=== PATIENT | female | born 1960 | race African-American/Black ===

== ENCOUNTER 2016-07-07 15:10 | Inpatient (IN) | payer MEDICAID ==
[~2016-07-07] VITALS: Ht 157.5 cm; Wt 42.2 kg
[~2016-07-07 15:10] MED LIST: FUROSEMIDE20 M1 ORAL; POTASSIUM CHLOR8 ME3 PO; SPIRONOLACTONE25 MG ORAL
[2016-07-07 16:51] VITALS: BP 94/71
[2016-07-07 16:56] LABS: BASOPHILS % (AUTO) 1.8 % (0.0-2.0); EOSINOPHILS % (AUTO) 0.4 % (0.0-3.0); LYMPHOCYTES % (AUTO) 26.3 % (20.0-45.0); MEAN CORPUSCULAR HEMOGLOBIN 33.7 PG (27.0-31.0); MEAN CORPUSCULAR HGB CONC 32.4 G/DL (32.0-36.0); MEAN CORPUSCULAR VOLUME 104 FL (80-99); MEAN PLATELET VOLUME 7.1 FL (6.5-10.1); MONOCYTES % (AUTO) 11.4 % (1.0-10.0); NEUTROPHILS % (AUTO) 60.2 % (45.0-75.0); PLATELET COUNT 159 K/UL (150-450); RED BLOOD COUNT 3.38 M/UL (4.20-5.40); RED CELL DISTRIBUTION WIDTH 12.7 % (11.6-14.8); WHITE BLOOD COUNT 8.5 K/UL (4.8-10.8)
[2016-07-07 16:58] LABS: APPEARANCE,URINE CLEAR; KETONES,URINE NEGATIVE (NEGATIVE); LEUKOCYTE ESTERASE ,URINE NEGATIVE (NEGATIVE); NITRITE,URINE NEGATIVE (NEGATIVE); PH,URINE 7 (4.5-8.0); PROTEIN,URINE NEGATIVE (NEGATIVE); UROBILINOGEN,URINE NORMAL MG/DL (0.0-1.0)
--- NOTE | 2016-07-07 17:00 | Emergency Room Report ---
History of Present Illness General Chief Complaint: Syncope Source: Patient, Family Member Present Illness HPI 56 YO F on lasix with witnessed syncopal episode walking into house. Daughter stated patient c/o dizziness, went limp, had to be carried in. Regained consciousness within minutes. No trauma. Patient now asymptomatic, denies current and precipitating chest pain, SOB, abd pain, rectal bleed, anemia, headache. Takes lasix with potassium. Allergies: Coded Allergies: No Known Allergies (Unverified , 07/07/16) Patient History Past Medical History: see triage record, old chart reviewed Past Surgical History: none Pertinent Family History: none Social History: Denies: alcohol use, drug use, smoking Now: No Immunizations: UTD Reviewed Nursing Documentation: PMH: Agreed, PSxH: Agreed Nursing Documentation-PMH Hx Gastrointestinal Problems: Yes - Cirrhosis of liver Review of Systems All Other Systems: negative except mentioned in HPI Physical Exam Vital Signs Date Time Temp Pulse Resp B/P Pulse Ox O2 Delivery O2 Flow Rate FiO2 07/07/16 15:05 98.4 80 16 92/58 97 Room Air Sp02 EP Interpretation: reviewed, abnormal General Appearance: normal inspection, well appearing, no apparent distress, alert, GCS 15, non-toxic, cachetic, other - frail elderly lady Head: normocephalic, atraumatic Eyes: bilateral eye EOMI, bilateral eye PERRL ENT: normal ENT inspection, hearing grossly normal, normal voice Neck: normal inspection, full range of motion, supple, no bony tend Cardiovascular #1: regular rate, rhythm, no edema Gastrointestinal: normal inspection, normal bowel sounds, non tender, soft, no guarding, no hernia Genitourinary: no CVA tenderness Musculoskeletal: normal inspection, back normal, normal range of motion, Alon' s Sign negative Neurologic: normal inspection, alert, oriented x3, responsive, 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 I attest that this information is true, accurate and complete to the best of my knowledge. I understand that any falsification, omission, or concealment of material fact may subject me to administrative, civil, or criminal liability. This patient warrants hospital admission for extreme of age and has a condition that cannot be treated as outpatient. Diagnostic Impression: Primary Impression: Syncope Qualified Codes: R55 - Syncope and collapse Additional Impressions: Hypotension Qualified Codes: I95.9 - Hypotension, unspecified Hypokalemia Prolonged QT interval ER Course Labs: H&H stable. K 2.9 UA: Negative for hematuria, UTI ECG: NSR. No ischemia. Prolonged QTc A: Syncope Possibly vasovagal Hypotensive but not critically low Doesnt take beta denilson ?related to hypokalemia from Lasix despite supplementation - Gave gentle hydration in ED - Repleted K Endorsed to Dr Garcia at 513pm for tele admission EKG Diagnostic Results Rate: normal Rhythm: NSR ST Segments: no acute changes Other Impression prolonged QTc ASA given to the pt in ED: No Rhythm Strip Diag. Results EP Interpretation: yes Rate: 74 Rhythm: NSR, no PVC's, no ectopy Chest X-Ray Diagnostic Results EP Interpretation: Yes Findings: no consolidation, no effusion, no pneumothorax, no acute cardiopulmonary disease Number of Views: 1 Last Vital Signs Date Time Temp Pulse Resp B/P Pulse Ox O2 Delivery O2 Flow Rate FiO2 07/07/16 16:51 98.2 67 16 94/71 99 Room Air Status: improved Disposition: ADMITTED INPATIENT Condition: Serious Referrals: NOT CHOSEN JOSEPH/,REFERRING (PCP) TRISTAN LONGO M.D. Jul 07, 2016 17:00
[2016-07-07 17:12] LABS: ALANINE AMINOTRANSFERASE 15 U/L (3-33); ALBUMIN/GLOBULIN RATIO 0.8 (1.0-2.7); ANION GAP 13 (5-15); ASPARTATE AMINO TRANSFERASE 36 U/L (5-40); CARBON DIOXIDE 32 mEQ/L (20-30); CHLORIDE 90 mEQ/L (98-107); CREATININE 0.6 mg/dL (0.5-0.9); GLOMERULAR FILTRATION RATE > 60 mL/min (>60); HEMOLYSIS 35; POTASSIUM 2.9 mEQ/L (3.4-4.9); SODIUM 135 mEQ/L (135-145); TOTAL PROTEIN 6.7 g/dL (6.6-8.7); TROPONIN I < 0.30 ng/mL (<=0.30)
[2016-07-07 17:22] LABS: CKMB < 1.5 ng/mL (< 3.8)
[2016-07-07 17:43] VITALS: BP 97/68
[2016-07-07] MEDS ORDERED: KCl 10% 40mEq/30ml liquid ORAL ONE (17:45)
--- NOTE | 2016-07-07 19:11 | Cardiac Electrophysiology PN ---
Subjective Subjective [id number] Objective Last 24 Hour Vital Signs Date Time Temp Pulse Resp B/P Pulse Ox O2 Delivery O2 Flow Rate FiO2 07/07/16 17:43 98.1 70 14 97/68 100 Room Air 07/07/16 16:51 98.2 67 16 94/71 99 Room Air 07/07/16 15:05 98.4 80 16 92/58 97 Room Air Laboratory Tests Test 07/07/16 16:00 White Blood Count 8.5 K/UL (4.8-10.8) Red Blood Count 3.38 M/UL (4.20-5.40) L Hemoglobin 11.4 G/DL (12.0-16.0) L Hematocrit 35.2 % (37.0-47.0) L Mean Corpuscular Volume 104 FL (80-99) H Mean Corpuscular Hemoglobin 33.7 PG (27.0-31.0) H Mean Corpuscular Hemoglobin Concent 32.4 G/DL (32.0-36.0) Red Cell Distribution Width 12.7 % (11.6-14.8) Platelet Count 159 K/UL (150-450) Mean Platelet Volume 7.1 FL (6.5-10.1) Neutrophils (%) (Auto) 60.2 % (45.0-75.0) Lymphocytes (%) (Auto) 26.3 % (20.0-45.0) Monocytes (%) (Auto) 11.4 % (1.0-10.0) H Eosinophils (%) (Auto) 0.4 % (0.0-3.0) Basophils (%) (Auto) 1.8 % (0.0-2.0) Urine Color Pale yellow Urine Appearance Clear Urine pH 7 (4.5-8.0) Urine Specific [place] 1.010 (1.005-1.035) Urine Protein Negative (NEGATIVE) Urine Glucose (UA) Negative (NEGATIVE) Urine Ketones Negative (NEGATIVE) Urine Occult Blood Negative (NEGATIVE) Urine Nitrite Negative (NEGATIVE) Urine Bilirubin Negative (NEGATIVE) Urine Urobilinogen Normal MG/DL (0.0-1.0) Urine Leukocyte Esterase Negative (NEGATIVE) Sodium Level 135 mEQ/L (135-145) Potassium Level 2.9 mEQ/L (3.4-4.9) L Chloride Level 90 mEQ/L (98-107) L Carbon Dioxide Level 32 mEQ/L (20-30) H Anion Gap 13 (5-15) Blood Urea Nitrogen 8 mg/dL (7-23) Creatinine 0.6 mg/dL (0.5-0.9) Estimat Glomerular Filtration Rate > 60 mL/min (>60) Glucose Level 114 mg/dL (74-106) H Calcium Level 9.0 mg/dL (8.6-10.2) Total Bilirubin 0.5 mg/dL (0.0-1.2) Aspartate Amino Transf (AST/SGOT) 36 U/L (5-40) Alanine Aminotransferase (ALT/SGPT) 15 U/L (3-33) Alkaline Phosphatase 133 U/L (35-104) H Total Creatine Kinase 35 U/L (26-140) Creatine Kinase MB < 1.5 ng/mL (< 3.8) Creatine Kinase MB Relative Index 4.2 Troponin I < 0.30 ng/mL (<=0.30) Total Protein 6.7 g/dL (6.6-8.7) Albumin 3.1 g/dL (3.5-5.2) L Globulin 3.6 g/dL Albumin/Globulin Ratio 0.8 (1.0-2.7) L JONES PAEZ Jul 07, 2016 19:11
[2016-07-07 20:17] VITALS: BP 94/59
[2016-07-07 22:38] VITALS: BP 92/63
[2016-07-08] VITALS: BP 98/59
[2016-07-08] MEDS ORDERED: Milk of Magnesia 30ml Ud ORAL PRN (00:30)
[2016-07-08] MEDS ORDERED: VITAMIN D1000 UNI1 ORAL (03:17)
[2016-07-08] MEDS ORDERED: TURMERIC500 MG PO (03:21)
--- NOTE | 2016-07-08 03:28 | Consultation ---
DATE OF CONSULTATION: 07/07/2016 CARDIOLOGY CONSULTATION REFERRING PHYSICIAN: Gabino Garcia M.D. REASON FOR CONSULTATION: Hypotension, prolonged QT, and syncope. HISTORY OF PRESENT ILLNESS: The patient is a 56-year-old lady, who states that she went to [facility] about a week ago with lower extremity edema and received Lasix and potassium. The patient presented to the emergency room after she had syncopal episodes. In the emergency room, the patient was found to be hypotensive with a blood pressure as low as 92/58. Heart rate was 80. Cardiology consultation was obtained for further evaluation QT was also prolonged. The patient denies any chest pain or shortness of breath. REVIEW OF SYSTEMS: Review of systems was performed and was negative other than what was mentioned in the history of present illness. PAST MEDICAL HISTORY: Left lower extremity edema. The patient denies any coronary artery disease, congestive heart failure, hypertension, or diabetes. FAMILY HISTORY: Noncontributory. MEDICATIONS: Medications at home include: 1. Potassium. 2. Lasix. 3. Aldactone 25 mg daily. PHYSICAL EXAMINATION: VITAL SIGNS: Blood pressure is 97/68, pulse 70, respirations 14, and she is afebrile. HEAD AND NECK: No JVD or carotid bruits. LUNGS: Clear. CARDIOVASCULAR: Shows regular S1 and S2 with no gallop or murmur. ABDOMEN: Soft and nontender. EXTREMITIES: No pitting edema. LABORATORY AND DIAGNOSTIC DATA: Her EKG showed normal sinus rhythm with prolonged QT with corrected QT of 486 milliseconds. Labs show a white count 8.2, hemoglobin 11.4, hematocrit 35.5, and platelet count 159,000. Sodium 135, potassium 2.9, BUN , and glucose of 114. Troponin is negative. ASSESSMENT AND PLAN: 1. Syncope, etiology is not clear at this time. It could be secondary to dehydration BUN and creatinine is supportive of that. We will get an echocardiogram to evaluate for ejection fraction and wall motion abnormality, and get a carotid Doppler and check orthostatic vital signs. We will completely rule out myocardial infarction protocol as well. 2. Prolonged QT, likely secondary to severe hypokalemia with a potassium of 2.9. We will repeat EKG after potassium is repleted. 3. Mild anemia. 4. History of bilateral extremity edema. Again, echocardiogram will be repeated for further evaluation. Thank you very much, Dr. Garcia, for allowing me to participate in the care of this patient. Please do not hesitate to contact me for any questions regarding my evaluation. Ta Hassan M.D. DR: BHARAT JOB#: [id number] CC:
[2016-07-08 04:00] VITALS: BP 96/59
[2016-07-08 08:00] VITALS: BP 96/63
[2016-07-08 08:04] LABS: BASOPHILS % (AUTO) 1.7 % (0.0-2.0); EOSINOPHILS % (AUTO) 1.1 % (0.0-3.0); LYMPHOCYTES % (AUTO) 32.3 % (20.0-45.0); MEAN CORPUSCULAR HEMOGLOBIN 34.8 PG (27.0-31.0); MEAN CORPUSCULAR VOLUME 106 FL (80-99); MONOCYTES % (AUTO) 11.9 % (1.0-10.0); PLATELET COUNT 155 K/UL (150-450); RED BLOOD COUNT 2.86 M/UL (4.20-5.40); RED CELL DISTRIBUTION WIDTH 12.9 % (11.6-14.8); WHITE BLOOD COUNT 6.9 K/UL (4.8-10.8)
[2016-07-08 08:39] LABS: TROPONIN I < 0.30 ng/mL (<=0.30)
[2016-07-08 09:03] LABS: CKMB < 1.5 ng/mL (< 3.8)
[2016-07-08 09:04] LABS: ANION GAP 13 (5-15); CALCIUM 8.1 mg/dL (8.6-10.2); CARBON DIOXIDE 27 mEQ/L (20-30); CHLORIDE 103 mEQ/L (98-107); CREATININE 0.5 mg/dL (0.5-0.9); GLOMERULAR FILTRATION RATE > 60 mL/min (>60); HEMOLYSIS 5; SODIUM 143 mEQ/L (135-145)
[2016-07-08] MEDS: Spironolactone 25mg tab ORAL SCH (09:27)
[2016-07-08] MEDS: Heparin 5000 units/ml inj SUBQ SCH ×2 (09:28→20:58)
[2016-07-08 12:15] VITALS: BP 97/57
--- NOTE | 2016-07-08 14:29 | Cardiac Electrophysiology PN ---
Assessment/Plan Assessment/Plan 1. Syncope, etiology is not clear at this time. Ruled out for LA. Echocardiogram pending. Carotid Doppler was negative.Not orthostatic 2. Prolonged QT, likely secondary to severe hypokalemia with a potassium of 2.9. 3. Mild anemia. 4. History of bilateral extremity edema. Echocardiogram pending. SHARDA RN Subjective Subjective Comfortable in NAD. No arrhythmias on tele. Objective Last 24 Hour Vital Signs Date Time Temp Pulse Resp B/P Pulse Ox O2 Delivery O2 Flow Rate FiO2 07/08/16 12:15 98.1 59 18 97/57 100 Room Air 07/08/16 08:00 83 07/08/16 08:00 97.9 80 18 96/63 100 Room Air 07/08/16 04:00 97.5 78 16 96/59 99 Room Air 07/08/16 03:31 77 07/08/16 00:53 81 07/08/16 00:00 98.2 74 18 98/59 97 Room Air 07/07/16 23:10 98.1 70 16 92/63 100 Room Air 07/07/16 22:38 98.1 70 16 92/63 100 Room Air 07/07/16 20:17 98.3 65 16 94/59 100 Room Air 07/07/16 17:43 98.1 70 14 97/68 100 Room Air 07/07/16 16:51 98.2 67 16 94/71 99 Room Air 07/07/16 15:05 98.4 80 16 92/58 97 Room Air Intake and Output 07/07/16 07/08/16 19:00 07:00 Intake Total 0 ml 900 ml Balance 0 ml 900 ml Intake Oral 0 ml Hemodialysis 900 ml Laboratory Tests Test 07/07/16 16:00 07/08/16 05:00 White Blood Count 8.5 K/UL (4.8-10.8) 6.9 K/UL (4.8-10.8) Red Blood Count 3.38 M/UL (4.20-5.40) L 2.86 M/UL (4.20-5.40) L Hemoglobin 11.4 G/DL (12.0-16.0) L 10.0 G/DL (12.0-16.0) L Hematocrit 35.2 % (37.0-47.0) L 30.3 % (37.0-47.0) L Mean Corpuscular Volume 104 FL (80-99) H 106 FL (80-99) H Mean Corpuscular Hemoglobin 33.7 PG (27.0-31.0) H 34.8 PG (27.0-31.0) H Mean Corpuscular Hemoglobin Concent 32.4 G/DL (32.0-36.0) 33.0 G/DL (32.0-36.0) Red Cell Distribution Width 12.7 % (11.6-14.8) 12.9 % (11.6-14.8) Platelet Count 159 K/UL (150-450) 155 K/UL (150-450) Mean Platelet Volume 7.1 FL (6.5-10.1) 7.0 FL (6.5-10.1) Neutrophils (%) (Auto) 60.2 % (45.0-75.0) 53.0 % (45.0-75.0) Lymphocytes (%) (Auto) 26.3 % (20.0-45.0) 32.3 % (20.0-45.0) Monocytes (%) (Auto) 11.4 % (1.0-10.0) H 11.9 % (1.0-10.0) H Eosinophils (%) (Auto) 0.4 % (0.0-3.0) 1.1 % (0.0-3.0) Basophils (%) (Auto) 1.8 % (0.0-2.0) 1.7 % (0.0-2.0) Urine Color Pale yellow Urine Appearance Clear Urine pH 7 (4.5-8.0) Urine Specific [place] 1.010 (1.005-1.035) Urine Protein Negative (NEGATIVE) Urine Glucose (UA) Negative (NEGATIVE) Urine Ketones Negative (NEGATIVE) Urine Occult Blood Negative (NEGATIVE) Urine Nitrite Negative (NEGATIVE) Urine Bilirubin Negative (NEGATIVE) Urine Urobilinogen Normal MG/DL (0.0-1.0) Urine Leukocyte Esterase Negative (NEGATIVE) Sodium Level 135 mEQ/L (135-145) 143 mEQ/L (135-145) Potassium Level 2.9 mEQ/L (3.4-4.9) L 3.0 mEQ/L (3.4-4.9) L Chloride Level 90 mEQ/L (98-107) L 103 mEQ/L (98-107) Carbon Dioxide Level 32 mEQ/L (20-30) H 27 mEQ/L (20-30) Anion Gap 13 (5-15) 13 (5-15) Blood Urea Nitrogen 8 mg/dL (7-23) 7 mg/dL (7-23) Creatinine 0.6 mg/dL (0.5-0.9) 0.5 mg/dL (0.5-0.9) Estimat Glomerular Filtration Rate > 60 mL/min (>60) > 60 mL/min (>60) Glucose Level 114 mg/dL (74-106) H 100 mg/dL (74-106) Calcium Level 9.0 mg/dL (8.6-10.2) 8.1 mg/dL (8.6-10.2) L Total Bilirubin 0.5 mg/dL (0.0-1.2) Aspartate Amino Transf (AST/SGOT) 36 U/L (5-40) Alanine Aminotransferase (ALT/SGPT) 15 U/L (3-33) Alkaline Phosphatase 133 U/L (35-104) H Total Creatine Kinase 35 U/L (26-140) 25 U/L (26-140) L Creatine Kinase MB < 1.5 ng/mL (< 3.8) < 1.5 ng/mL (< 3.8) Creatine Kinase MB Relative Index 4.2 6.0 Troponin I < 0.30 ng/mL (<=0.30) < 0.30 ng/mL (<=0.30) Total Protein 6.7 g/dL (6.6-8.7) Albumin 3.1 g/dL (3.5-5.2) L Globulin 3.6 g/dL Albumin/Globulin Ratio 0.8 (1.0-2.7) L Pro-B-Type Natriuretic Peptide 465 pg/mL (0-125) H Thyroid Stimulating Hormone (TSH) 1.010 uIU/mL (0.300-4.500) Free Thyroxine 0.96 ng/dL (0.86-1.85) Objective HEAD AND NECK: No JVD or carotid bruits. LUNGS: Clear. CARDIOVASCULAR: Shows regular S1 and S2 with no gallop or murmur. ABDOMEN: Soft and nontender. EXTREMITIES: No pitting edema. TOLUIE,JONES Jul 08, 2016 14:29
[2016-07-08 16:00] VITALS: BP 121/66
[2016-07-08 20:00] VITALS: BP 91/67
--- NOTE | 2016-07-08 20:34 | History and Physical ---
History of Present Illness General Date patient seen: Jul 08, 2016 Reason for Hospitalization: Syncope Present Illness HPI 56 y/o female with a history of ETOH cirrhosis who presented to the ED with syncopal episode. She reports that she suddenly felt dizzy and body went limp. She states that her daughter told her she lost consciousness of a few seconds and was carried into her house. Denies any head trauma. Does report a similar episode a couple of months ago but did not go to the hospital at that time. She also reports being admitted at [facility] in the last month for swelling of her legs and was prescribed lasix and aldactone. She was found to have severely low potassium and was admitted for further management. Allergies: Coded Allergies: No Known Allergies (Unverified , 07/07/16) Medication History Scheduled Cholecalciferol (Vitamin D3)* (Vitamin D*), 1,000 UNIT ORAL DAILY, (Reported) Furosemide* (Lasix*), 20 MG ORAL DAILY, (Reported) Spironolactone* (Aldactone*), 25 MG ORAL DAILY, (Reported) Turmeric Root Extract (Turmeric), 500 MG PO DAILY, (Reported) Miscellaneous Medications Potassium Chloride (Potassium Chloride), 8 MEQ PO, (Reported) Patient History History Provided By: Patient Healthcare decision maker Resuscitation status Full Code Advanced Directive on File No Past Medical/Surgical History Past Medical/Surgical History: (1) Cirrhosis, alcoholic Social History Social History: (1) Tobacco abuse (2) ETOH abuse Review of Systems All Other Systems: negative except mentioned in HPI Physical Exam General Appearance: WD/WN, no apparent distress HEENT: normocephalic, atraumatic Respiratory/Chest: lungs clear Cardiovascular/Chest: normal rate, regular rhythm Abdomen: non tender, soft Extremities: no edema Neurologic: alert, oriented x 3 Last 24 Hour Vital Signs Date Time Temp Pulse Resp B/P Pulse Ox O2 Delivery O2 Flow Rate FiO2 07/08/16 16:00 98.6 69 18 121/66 100 Room Air 07/08/16 16:00 77 07/08/16 12:15 98.1 59 18 97/57 100 Room Air 07/08/16 12:00 79 07/08/16 08:00 83 07/08/16 08:00 97.9 80 18 96/63 100 Room Air 07/08/16 04:00 97.5 78 16 96/59 99 Room Air 07/08/16 03:31 77 07/08/16 00:53 81 07/08/16 00:00 98.2 74 18 98/59 97 Room Air 07/07/16 23:10 98.1 70 16 92/63 100 Room Air 07/07/16 22:38 98.1 70 16 92/63 100 Room Air Intake and Output 07/07/16 07/08/16 19:00 07:00 Intake Total 0 ml 1050 ml Balance 0 ml 1050 ml Intake Oral 0 ml IV Total 150 ml Hemodialysis 900 ml Laboratory Tests Test 07/08/16 05:00 White Blood Count 6.9 K/UL (4.8-10.8) Red Blood Count 2.86 M/UL (4.20-5.40) L Hemoglobin 10.0 G/DL (12.0-16.0) L Hematocrit 30.3 % (37.0-47.0) L Mean Corpuscular Volume 106 FL (80-99) H Mean Corpuscular Hemoglobin 34.8 PG (27.0-31.0) H Mean Corpuscular Hemoglobin Concent 33.0 G/DL (32.0-36.0) Red Cell Distribution Width 12.9 % (11.6-14.8) Platelet Count 155 K/UL (150-450) Mean Platelet Volume 7.0 FL (6.5-10.1) Neutrophils (%) (Auto) 53.0 % (45.0-75.0) Lymphocytes (%) (Auto) 32.3 % (20.0-45.0) Monocytes (%) (Auto) 11.9 % (1.0-10.0) H Eosinophils (%) (Auto) 1.1 % (0.0-3.0) Basophils (%) (Auto) 1.7 % (0.0-2.0) Sodium Level 143 mEQ/L (135-145) Potassium Level 3.0 mEQ/L (3.4-4.9) L Chloride Level 103 mEQ/L (98-107) Carbon Dioxide Level 27 mEQ/L (20-30) Anion Gap 13 (5-15) Blood Urea Nitrogen 7 mg/dL (7-23) Creatinine 0.5 mg/dL (0.5-0.9) Estimat Glomerular Filtration Rate > 60 mL/min (>60) Glucose Level 100 mg/dL (74-106) Calcium Level 8.1 mg/dL (8.6-10.2) L Total Creatine Kinase 25 U/L (26-140) L Creatine Kinase MB < 1.5 ng/mL (< 3.8) Creatine Kinase MB Relative Index 6.0 Troponin I < 0.30 ng/mL (<=0.30) Pro-B-Type Natriuretic Peptide 465 pg/mL (0-125) H Thyroid Stimulating Hormone (TSH) 1.010 uIU/mL (0.300-4.500) Free Thyroxine 0.96 ng/dL (0.86-1.85) Height (Feet): 5 Height (Inches): 2.00 Weight (Pounds): 93 Medications Current Medications Medications (Trade) Dose Ordered Sig/Shawn Route PRN Reason Start Time Stop Time Status Last Admin Dose Admin Acetaminophen (Tylenol) 650 mg Q4H PRN ORAL Mild Pain (Pain Scale 1-3) 07/08/16 00:30 08/07/16 00:29 Dextrose (Dextrose 50%) STAT PRN IV Hypoglycemia 07/08/16 00:30 08/07/16 00:29 Furosemide (Lasix) 40 mg DAILY ORAL 07/09/16 09:00 08/08/16 08:59 Heparin Sodium (Porcine) (Heparin 5000 units/ml) 5,000 units EVERY 12 HOURS SUBQ 07/08/16 09:00 08/07/16 08:59 07/08/16 09:28 Magnesium Hydroxide (Mom) 30 ml HSPRN PRN ORAL Constipation 07/08/16 00:30 08/07/16 00:29 Ondansetron HCl (Zofran) 4 mg Q6H PRN IVP Nausea & Vomiting 07/08/16 00:30 08/07/16 00:29 Potassium Chloride (K-Dur) 20 meq DAILY ORAL 07/08/16 09:00 08/07/16 08:59 07/08/16 09:27 Sodium Chloride (Sodium Chloride 1000ml bag) 1,000 ml @ 150 mls/hr Q6H40M IV 07/07/16 17:30 08/06/16 17:29 07/08/16 14:21 Spironolactone (Aldactone) 25 mg DAILY ORAL 07/08/16 09:00 08/07/16 08:59 07/08/16 09:27 Assessment/Plan Problem List: (1) Syncope ICD Codes: R55 - Syncope and collapse SNOMED: 433287566 Qualifiers: Qualified Codes: R55 - Syncope and collapse (2) Hypotension ICD Codes: I95.9 - Hypotension, unspecified SNOMED: 03132077 Qualifiers: Qualified Codes: I95.9 - Hypotension, unspecified (3) Hypokalemia ICD Codes: E87.6 - Hypokalemia SNOMED: 41930540 (4) Prolonged QT interval ICD Codes: R94.31 - Abnormal electrocardiogram [ECG] [EKG] SNOMED: 867906120 (5) Tobacco abuse ICD Codes: Z72.0 - Tobacco use SNOMED: 10556559, 566113239 (6) ETOH abuse ICD Codes: F10.10 - Alcohol abuse, uncomplicated SNOMED: 15202316, 02892854 (7) Cirrhosis, alcoholic ICD Codes: K70.30 - Alcoholic cirrhosis of liver without ascites SNOMED: 660979473, 902467241 Assessment/Plan Cardio consult called with Dr. Hassan. Echo. Carotid u/s. IVF. PT/OT eval. d/w Radha. DYLLAN BENNETT Jul 08, 2016 20:34
[2016-07-09 04:00] VITALS: BP 114/69
[2016-07-09 08:35] VITALS: BP 88/50
[2016-07-09] MEDS: Spironolactone 25mg tab ORAL SCH (09:32)
[2016-07-09] MEDS: Heparin 5000 units/ml inj SUBQ SCH ×2 (09:32→22:54)
[2016-07-09] MEDS: KCl 10% 20 mEq/15ml liquid ORAL SCH ×2 (09:38→17:47)
[2016-07-09] MEDS: Furosemide 40mg tab ORAL SCH ×2 (09:40→12:50)
[2016-07-09 11:13] LABS: BASOPHILS % (AUTO) 1.1 % (0.0-2.0); MEAN CORPUSCULAR HEMOGLOBIN 33.4 PG (27.0-31.0); MEAN CORPUSCULAR HGB CONC 31.4 G/DL (32.0-36.0); MEAN CORPUSCULAR VOLUME 106 FL (80-99); MONOCYTES % (AUTO) 9.8 % (1.0-10.0); NEUTROPHILS % (AUTO) 53.1 % (45.0-75.0); PLATELET COUNT 155 K/UL (150-450); RED BLOOD COUNT 3.04 M/UL (4.20-5.40); RED CELL DISTRIBUTION WIDTH 12.8 % (11.6-14.8); WHITE BLOOD COUNT 8.5 K/UL (4.8-10.8)
[2016-07-09 11:29] LABS: ANION GAP 13 (5-15); CALCIUM 8.4 mg/dL (8.6-10.2); CARBON DIOXIDE 24 mEQ/L (20-30); CHLORIDE 101 mEQ/L (98-107); CREATININE 0.5 mg/dL (0.5-0.9); GLOMERULAR FILTRATION RATE > 60 mL/min (>60); HEMOLYSIS 1; SODIUM 138 mEQ/L (135-145)
[2016-07-09 11:59] VITALS: BP 113/61
[2016-07-09 16:00] VITALS: BP 85/54
[2016-07-09 17:23] VITALS: BP 91/61
[2016-07-09 20:00] VITALS: BP 89/59
--- NOTE | 2016-07-09 20:22 | Nephrology Progress Note ---
Assessment/Plan Problem List: (1) Hypotension (2) Syncope (3) Hypokalemia (4) ETOH abuse (5) Tobacco abuse (6) Cirrhosis, alcoholic Plan PT/OT. d/c plan for am if stable. monitor k. Subjective Subjective "ok" no new c/o. Objective Objective Last 24 Hour Vital Signs Date Time Temp Pulse Resp B/P Pulse Ox O2 Delivery O2 Flow Rate FiO2 07/09/16 17:23 81 91/61 07/09/16 16:32 97 07/09/16 16:00 98.1 86 18 85/54 99 Room Air 07/09/16 12:00 74 07/09/16 11:59 98.1 71 18 113/61 100 Room Air 07/09/16 08:35 98.2 69 18 88/50 98 Room Air 07/09/16 08:00 77 07/09/16 06:00 72 07/09/16 04:00 98.2 78 18 114/69 99 Room Air 07/09/16 00:00 81 Intake and Output 07/08/16 07/09/16 19:00 07:00 Intake Total 2400 ml 480 ml Balance 2400 ml 480 ml Intake Oral 600 ml 480 ml IV Total 1800 ml # Voids 3 1 # Bowel Movements 1 Laboratory Tests 07/09/16 10:40: White Blood Count 8.5, Red Blood Count 3.04L, Hemoglobin 10.2L, Hematocrit 32.3L , Mean Corpuscular Volume 106H, Mean Corpuscular Hemoglobin 33.4H, Mean Corpuscular Hemoglobin Concent 31.4L, Red Cell Distribution Width 12.8, Platelet Count 155, Mean Platelet Volume 8.0, Neutrophils (%) (Auto) 53.1, Lymphocytes (%) (Auto) 35.0, Monocytes (%) (Auto) 9.8, Eosinophils (%) (Auto) 1.0, Basophils (%) (Auto) 1.1, Sodium Level 138, Potassium Level 4.0, Chloride Level 101, Carbon Dioxide Level 24, Anion Gap 13, Blood Urea Nitrogen 4L, Creatinine 0.5, Estimat Glomerular Filtration Rate > 60, Glucose Level 135H, Calcium Level 8.4L Height (Feet): 5 Height (Inches): 2.00 Weight (Pounds): 93 General Appearance: no apparent distress Cardiovascular: normal rate, regular rhythm Respiratory/Chest: lungs clear Abdomen: non tender, soft Extremities: non-pitting ROHINI RAM Jul 09, 2016 20:22
[2016-07-10] VITALS: BP 88/52
[2016-07-10 04:00] VITALS: BP 90/56
[2016-07-10 07:59] VITALS: BP 84/47
[2016-07-10] MEDS: Spironolactone 25mg tab ORAL SCH (08:39)
[2016-07-10] MEDS: KCl 10% 20 mEq/15ml liquid ORAL SCH (08:40)
[2016-07-10] MEDS: Furosemide 40mg tab ORAL SCH (08:40)
[2016-07-10] MEDS: Heparin 5000 units/ml inj SUBQ SCH (08:41)
[2016-07-10 11:23] VITALS: BP 91/64
--- NOTE | 2016-07-10 15:04 | Nephrology Progress Note ---
Assessment/Plan Problem List: (1) Hypotensive episode (2) Prolonged QT interval (3) Hypokalemia (4) Syncope (5) Hypotension Plan Stable lytes Monitor BP DC instructions regarding bp monitoring Pt advised to call the insurance company to be assigned a PCP for f/u Cardiac diet DC home Subjective Constitutional: Denies: chills, diaphoresis, fever, malaise, no symptoms, other , weakness HEENT: Denies: blurred vision, double vision, ear discharge, ear pain, eye pain , mouth pain, mouth swelling, no symptoms, nose congestion, nose pain, other, tearing, throat pain, throat swelling Genitourinary: Denies: burning, discharge, flank pain, frequency, hematuria, incontinence, no symptoms, other, pain, urgency Neurologic/Psychiatric: Denies: anxiety, depressed, emotional problems, headache, no symptoms, numbness, other, paresthesia, pre-existing deficit, seizure, tingling, tremors, weakness Subjective In bed, in no distress, states that she feels better and ready to go home, she stated that [place] and have not been assigned a PCP yet. Also stated that her SBP has always been in the 90s Objective Objective Last 24 Hour Vital Signs Date Time Temp Pulse Resp B/P Pulse Ox O2 Delivery O2 Flow Rate FiO2 07/10/16 12:00 82 07/10/16 11:23 97.9 77 18 91/64 100 Room Air 07/10/16 08:00 71 07/10/16 07:59 98.1 58 18 84/47 100 Room Air 07/10/16 04:00 98.6 88 18 90/56 100 Room Air 07/10/16 04:00 72 07/10/16 00:00 98.2 84 18 88/52 100 Room Air 07/10/16 00:00 67 07/09/16 20:00 97 07/09/16 20:00 98.4 83 18 89/59 100 Room Air 07/09/16 17:23 81 91/61 07/09/16 16:32 97 07/09/16 16:00 98.1 86 18 85/54 99 Room Air Intake and Output 07/09/16 07/10/16 19:00 07:00 Intake Total 560 ml 50 ml Balance 560 ml 50 ml Intake Oral 560 ml 50 ml # Voids 2 1 Height (Feet): 5 Height (Inches): 2.00 Weight (Pounds): 93 General Appearance: no apparent distress, alert EENT: normal ENT inspection Neck: non-tender, normal inspection Cardiovascular: normal rate, regular rhythm, no JVD Respiratory/Chest: lungs clear, normal breath sounds, no respiratory distress Abdomen: non tender, soft, no organomegaly Extremities: normal range of motion, non-tender, normal inspection, no calf tenderness Neurologic: alert, oriented x 3, responsive, normal mood/affect Liliana Ingram N.P. Jul 10, 2016 15:04
--- NOTE | 2016-07-10 16:01 | Cardiac Electrophysiology PN ---
Assessment/Plan Assessment/Plan 1. Syncope, etiology is not clear. Ruled out for MN. Echocardiogram EF 65%. Carotid Doppler was negative.Not orthostatic 2. Prolonged QT, likely secondary to severe hypokalemia with a potassium of 2.9. Resolved 3. Mild anemia. 4. History of edema. Resolved DW RN OK to DC from cardiac stand point. EM as out patient Subjective Subjective Comfortable in NAD. No arrhythmias on tele and no events overnight. Being DCed today. Objective Last 24 Hour Vital Signs Date Time Temp Pulse Resp B/P Pulse Ox O2 Delivery O2 Flow Rate FiO2 07/10/16 12:00 82 07/10/16 11:23 97.9 77 18 91/64 100 Room Air 07/10/16 08:00 71 07/10/16 07:59 98.1 58 18 84/47 100 Room Air 07/10/16 04:00 98.6 88 18 90/56 100 Room Air 07/10/16 04:00 72 07/10/16 00:00 98.2 84 18 88/52 100 Room Air 07/10/16 00:00 67 07/09/16 20:00 97 07/09/16 20:00 98.4 83 18 89/59 100 Room Air 07/09/16 17:23 81 91/61 07/09/16 16:32 97 07/09/16 16:00 98.1 86 18 85/54 99 Room Air Intake and Output 07/09/16 07/10/16 19:00 07:00 Intake Total 560 ml 50 ml Balance 560 ml 50 ml Intake Oral 560 ml 50 ml # Voids 2 1 Microbiology Date/Time Source Procedure Growth Status 07/07/16 16:55 Nasal Nares MRSA Culture - Final NO METHICILLIN RESISTANT STAPH AUREUS... Complete 07/07/16 16:55 Rectum VRE Culture - Final NO VANCOMYCIN RESISTANT ENTEROCOCCUS ... Complete Objective HEAD AND NECK: No JVD LUNGS: Clear. CARDIOVASCULAR: Regular S1 and S2 with no gallop or murmur. ABDOMEN: Soft and nontender. EXTREMITIES: No pitting edema. JONES PAEZ Jul 10, 2016 16:01
--- NOTE | 2016-07-10 20:35 | Cardiology Report ---
APPROVED REPORT EXAM: Two-dimensional and M-mode echocardiogram with Doppler and color Doppler. INDICATION Syncope M-Mode DIMENSIONS IVSd0.6 (0.7-1.1cm)Left Atrium (MM)3.5 (1.6-4.0cm) LVDd2.6 (3.5-5.6cm)Aortic Root2.7 (2.0-3.7cm) PWd0.6 (0.7-1.1cm)Aortic Cusp Exc.2.0 (1.5-2.0cm) LVDs0.8 (2.5-4.0cm) PWs1.0 cm Technically difficult study due to poor acoustic windows. Normal left ventricular chamber size, systolic function and wall motion. Left ventricular ejection fraction estimated to be 60-65 %. Mild left ventricular hypertrophy. No evidence of pericardial fat or effusion. All other cardiac chamber sizes are within normal limits. Focal aortic valve sclerosis with adequate cusp excursion Thickened mitral valve leaflets with normal excursion. Mild mitral annulus and aortic root calcification. Pulmonic valve not well visualized. Normal tricuspid valve structure. IVC is normal in size with physiologic collapse. A color flow and spectral Doppler study was performed and revealed: No aortic regurgitation. No mitral regurgitation. Left ventricular diastolic dysfunction grade 1. No tricuspid regurgitation.
--- NOTE | 2016-07-11 09:35 | Discharge Summary ---
Discharge Summary Hospital Course Date of Admission Jul 07, 2016 at 17:08 Date of Discharge Jul 10, 2016 at 16:00 Admitting Diagnosis SYNCOPE HPI Geneva Brandon is a 56 year old female who was admitted on Jul 07, 2016 at 17: 08 for Syncope Hospital Course dc summary #[id number] Discharge Medications Continued Medications: Cholecalciferol (Vitamin D3)* (Vitamin D*) 1,000 Unit Tablet 1000 UNIT ORAL DAILY, #30 TAB Turmeric Root Extract (Turmeric) 500 Mg Capsule 500 MG PO DAILY, CAP Discharge Condition Upon Discharge: stable Discharge Disposition Patient was discharged to Home (01) Discharge Diagnoses: Discharge Instructions Discharge Instructions Special Instructions I have been assigned to complete a D/C Summary on this account. I was not involved in the patient management Hilary Izaguirre NP ([facility]) Jul 11, 2016 09:35
--- NOTE | 2016-07-11 11:37 | Cardiology Report ---
APPROVED REPORT EKG Measurement Heart [id number] Normal sinus rhythm Prolonged QT Abnormal ECG
--- NOTE | 2016-07-11 23:24 | Diagnostic Imaging Report ---
APPROVED REPORT CPT Code: 78663 Vascular Symptoms Syncope BILATERAL: ICA/BULB - Imaging reveals irregular, moderate plaque in both carotid bulbs. carotid arteries. The Doppler spectral flow analysis is within normal limits throughout the common carotid and external carotid arteries. VERTEBRALS - Imaging reveals both vertebral arteries to be patent, without evidence of stenosis or steal.
--- NOTE | 2016-07-12 02:30 | Discharge Summary 2 SIG ---
DATE OF ADMISSION: 07/07/2016 DATE OF DISCHARGE: 07/10/2016 REASON FOR ADMISSION: 56-year-old female, came to emergency room after a witnessed syncopal episode at home by her daughter. She regained consciousness within a minute. No head trauma/injury. The patient was asymptomatic in the emergency room. Denied chest pain, shortness of breath, abdominal pain, rectal bleeding, anemia and headache. The patient was Lasix, Aldactone and potassium at home for h of edema of lower extremities. Edema subsided with treatment. The patient was nit on any other medications. The patient did not have any primary care provider at that time. Workup in the emergency room revealed hypotension and hypokalemia as well as a prolonged QT interval on the EKG. Hemoglobin and hematocrit were stable. No leukocytosis. Urinalysis was negative for hematuria with urinary tract infection. Potassium was 2.9. EKG revealed normal sinus rhythm, prolonging QT, but no ischemia.Blood pressure was 92/58. ' The patient was admitted to telemetry floor for further management. ADMITTING DIAGNOSES: 1. Witnessed syncopal episode. 2. Hypokalemia. 3. Hypotension. 4. Prolonging QT interval. HOSPITAL COURSE: The patient was admitted to telemetry floor. Cardiology consult was requested. Troponin x2 were negative. EKG revealed no ischemic ST changes. The patient was ruled out for acute myocardial infarction. No orthostatic changes. Per Cardiology, unclear etiology of syncopal, but likely vasovagal versus secondary to use of diuretics. Echocardiogram revealed preserved ejection fraction of 60% to 65% and mild left ventricular hypertrophy. No evidence of valvular heart disease. Potassium was repleted in the emergency room, likely secondary to diuretic use and was stable afterwards. Carotid duplex revealed no evidence of carotid artery disease. The patient was on gentle IV fluids. The patient was working with physical and occupational therapists. The patient has a history of alcohol abuse as well as tobacco abuse. The patient was counseled on abstinence from alcohol and smoking cessation. The patient has a history of alcoholic cirrhosis. LFT was stable. Cardiology cleared for discharge. The patient need to get a primary care provider through insurance and follow up on a regular basis. FINAL DIAGNOSES: 1. Syncope, - vasovagal versus excess diuretic diuretic. 2. Hypertension. 3. Hypokalemia, resolved. 4. Prolonged QT, resolved likely secondary to hypokalemia. 5. Tobacco abuse. 6. Alcohol abuse. 7. Alcoholic cirrhosis. DISCHARGE MEDICATION: None. DISCHARGE INSTRUCTIONS: The patient to find a primary care provider through the insurance and hold on antidiuretic for now. The patient was advised to come back to emergency room should she have another episode of syncope, increased weakness, dizziness, or blackouts. Gabino Garcia M.D. I have been assigned to dictate discharge summary on this account and I was not involved in the patient's management. Hilary SotoGood Samaritan University Hospitaldeedee N.PPete DR: PHILLIP JOB#: [id number] CC: LOIS
--- NOTE | 2016-07-27 09:23 | Diagnostic Imaging Report ---
Indication: Shortness of breath Technique: One view of the chest Comparison: none Findings: Lungs and pleural spaces are clear. Heart size is normal. Impression: No acute process
== END 2016-07-10 16:00 | disposition home or self-care (01) | DRG 422 ==
LOC: EDBD 15:10 → EMR 16:03 → 2E 17:08 → EDBEDREQ 19:00
DX: E87.6 Hypokalemia (principal); E86.0 Dehydration; I95.9 Hypotension, unspecified; K70.30 Alcoholic cirrhosis of liver without ascites; D64.9 Anemia, unspecified; F10.10 Alcohol abuse, uncomplicated; I45.81 Long QT syndrome; I10 Essential (primary) hypertension; F17.200 Nicotine dependence, unspecified, uncomplicated
CPT/HCPCS: 36415; 71010; 80048; 80053; 81003; 82550; 82553; 83880; 84439; 84443; 84484; 85025; 87081; 93005; 93306; 93880; J8499